=== PATIENT | male | born 1950 | race Caucasian/White ===

== ENCOUNTER 2022-06-26 20:07 | Emergency (ER) | payer MEDICARE ==
[~2022-06-26] VITALS: Ht 167.6 cm; Wt 103.6 kg
[2022-06-26] MEDS ORDERED: HYDR12.55 PO (20:27)
[2022-06-26] MEDS ORDERED: VERA240C3 PO (20:27)
[2022-06-26] MEDS ORDERED: BREO1INH PO (20:27)
[2022-06-26] MEDS ORDERED: LOSA100T45 PO (20:27)
[2022-06-26] MEDS ORDERED: COLA100C5 PO (20:27)
[2022-06-26] MEDS ORDERED: SPIR1CAP INH (20:27)
[2022-06-26] MEDS ORDERED: ACET1TAB55 PO (20:27)
[2022-06-26] MEDS ORDERED: ACET160S3 PO (20:27)
[2022-06-26] MEDS ORDERED: PANT40TA29 PO (20:27)
[2022-06-26] MEDS ORDERED: LANTINJ4 SC (20:27)
[2022-06-26] MEDS ORDERED: INSUHUMDS SC (20:27)
[2022-06-26] MEDS ORDERED: ELIQ5TAB PO (20:27)
[2022-06-26] MEDS ORDERED: GLUC1KIT (20:27)
[2022-06-26] MEDS ORDERED: FINA5TAB2 PO (20:27)
[2022-06-26] MEDS ORDERED: AZEL1SPR3 NARES (20:27)
[2022-06-26] MEDS ORDERED: GNP250TA9 PO (20:27)
[2022-06-26] MEDS ORDERED: ALBU6.7H6 INH (20:27)
[2022-06-26] MEDS ORDERED: CYMB60CA4 PO (20:27)
[2022-06-26] MEDS ORDERED: GABA-283 PO (20:27)
[2022-06-26] MEDS ORDERED: K-TA10TA2 PO (20:27)
[2022-06-26] MEDS ORDERED: ROPI3TAB3 PO (20:27)
[2022-06-26] MEDS ORDERED: VITDDR PO (20:27)
[2022-06-26] MEDS ORDERED: BISO5TAB14 PO (20:27)
[2022-06-26 21:31] LABS: BASO % 0.4 % (0.0-1.0); EOS # 0.1 10^3/uL (0.0-0.5); EOS % 0.6 % (0.0-3.0); HEMATOCRIT 39.7 % (42.0-52.0); HEMOGLOBIN 13.2 g/dl (13.5-17.5); LYMPH # 2.6 10^3/uL (1.5-5.0); LYMPH % 25.8 % (24.0-44.0); MEAN CORPUSCULAR HEMOGLOBIN 29.8 pg (27.0-33.0); MEAN CORPUSCULAR HGB CONC 33.2 g/dl (32.0-36.5); MEAN CORPUSCULAR VOLUME 89.6 fl (80.0-96.0); MONO # 1.1 10^3/uL (0.0-0.8); NEUTROPHILS # 6.2 10^3/uL (1.5-8.5); PLATELET COUNT, AUTOMATED 241 10^3/uL (150-450); RED BLOOD COUNT 4.43 10^6/uL (4.30-6.10); WHITE BLOOD COUNT 10.1 10^3/uL (4.0-10.0)
[2022-06-26 22:09] LABS: ALBUMIN 3.9 GM/DL (3.2-5.2); ALT/SGPT 21 U/L (12-78); BILIRUBIN,TOTAL 0.5 MG/DL (0.2-1.0); BLOOD UREA NITROGEN 23 MG/DL (7-18); C REACTIVE PROTEIN QUANTITATIV 8.66 MG/DL (0.00-0.30); CALCIUM LEVEL 9.6 MG/DL (8.8-10.2); CARBON DIOXIDE LEVEL 30 MEQ/L (21-32); CHLORIDE LEVEL 102 MEQ/L (98-107); CREATININE FOR GFR 0.99 MG/DL (0.70-1.30); GLOMERULAR FILTRATION RATE > 60.0 (>42); GLUCOSE, FASTING 292 MG/DL (70-100); POTASSIUM SERUM 4.2 MEQ/L (3.5-5.1); SODIUM LEVEL 137 MEQ/L (136-145); TOTAL PROTEIN 7.1 GM/DL (6.4-8.2)
[2022-06-26 23:08] LABS: ERYTHROCYTE SEDIMENTATION RATE 41 mm/hr (0-20)
[2022-06-26 23:30] VITALS: BP 167/79
[2022-06-26] MEDS ORDERED: ONDA4TAB6 PO (23:54)
[2022-06-26] MEDS ORDERED: CEPH500C PO (23:54)
[2022-06-26] MEDS ORDERED: LIDOCAINE 1% SDV 5ML VIAL DILUENT ONE (23:55)
[2022-06-26] MEDS ORDERED: cefTRIAXone SOD 1GM VIAL (J0696 PER 250MG) IM ONE (23:55)
[2022-06-26] MEDS ORDERED: ONDANSETRON 4MG ORAL DISINTEGRATING TAB PO ONE (23:55)
== END 2022-06-27 00:36 | disposition home or self-care (01) ==
LOC: M ED 20:07
DX: L03.311 Cellulitis of abdominal wall (principal); E10.9 Type 1 diabetes mellitus without complications; I10 Essential (primary) hypertension; J44.9 Chronic obstructive pulmonary disease, unspecified; Z99.81 Dependence on supplemental oxygen; Z79.01 Long term (current) use of anticoagulants; Z79.4 Long term (current) use of insulin; Z79.899 Other long term (current) drug therapy; Z88.1 Allergy status to other antibiotic agents; Z88.6 Allergy status to analgesic agent; Z88.8 Allergy status to other drugs, medicaments and biological substances
CPT/HCPCS: 80053; 83605; 85025; 85652; 86140; 87040; 96372; 99283; J0696